=== PATIENT | male | born 1980 | race Caucasian/White ===

== ENCOUNTER 2020-03-21 14:13 | Emergency (ER) | payer BC ==
--- NOTE | 2020-03-21 15:34 | EDM.PDOC ---
ED HPI GENERAL MEDICAL PROBLEM - General Chief Complaint: Lower Extremity Injury/Pain Stated Complaint: L ANKLE PAIN Time Seen by Provider: 03/21/20 14:25 Source of Information: Reports: Patient, RN Notes Reviewed History Limitations: Reports: No Limitations - History of Present Illness INITIAL COMMENTS - FREE TEXT/NARRATIVE: Patient is a 39-year-old male who presents to the ED for the evaluation of his left ankle injury. Patient notes he was mowing his lawn today, when he stepped in a hole and ended up twisting his left ankle. He did take some ibuprofen at home, and was using some ice upon initial triage. He states this is helped quite a bit, he came to the ER due to the amount of swelling he noticed. He states he has previously rolled this ankle a few years back. He is not having any numbness or tingling distal to the injury, is not having any pain up into his knee or leg. He has not had any other sick-like symptoms, fever/chills, cough or shortness of breath, nausea/vomiting/diarrhea. Left Ankle Pain Score (Numeric/FACES): 2 - Related Data Allergies Allergy/AdvReac Type Severity Reaction Status Date / Time No Known Allergies Allergy Verified 03/21/20 14:26 Home Meds: Home Meds . [No Known Home Meds] 03/21/20 [History] Past Medical History - Past Health History Medical/Surgical History: Denies Medical/Surgical History - Infectious Disease History Infectious Disease History: Reports: None Social & Family History - Tobacco Use Smoking Status *Q: Never Smoker Second Hand Smoke Exposure: No - Caffeine Use Caffeine Use: Reports: Coffee - Recreational Drug Use Recreational Drug Use: No Review of Systems - Review of Systems Review Of Systems: Comprehensive ROS is negative, except as noted in HPI. ED EXAM, GENERAL - Physical Exam Exam: See Below Exam Limited By: No Limitations General Appearance: Alert, WD/WN, No Apparent Distress Respiratory/Chest: No Respiratory Distress, Lungs Clear, Normal Breath Sounds, No Accessory Muscle Use, Chest Non-Tender Cardiovascular: Normal Peripheral Pulses, Regular Rate, Rhythm, No Murmur Peripheral Pulses: 2+: Dorsalis Pedis (L), Dorsalis Pedis (R) Extremities: Normal Range of Motion, Normal Capillary Refill, Other (Swelling over the left lateral malleolus) Neurological: Alert, Oriented, Normal Cognition, No Motor/Sensory Deficits Psychiatric: Normal Affect, Normal Mood Skin Exam: Warm, Dry, Intact, Normal Color, No Rash Course - Vital Signs Last Recorded V/S: Last Vital Signs Temp 98 F 03/21/20 14:25 Pulse 70 03/21/20 14:25 Resp 16 03/21/20 14:25 BP 136/93 H 03/21/20 14:25 Pulse Ox 96 03/21/20 14:25 - Orders/Labs/Meds Orders: Active Orders 24 hr Category Date Time Status Ankle Min 3V Lt [CR] Stat Exams 03/21/20 14:37 Ordered DME for Discharge [COMM] Routine Oth 03/21/20 15:28 Ordered - Re-Assessments/Exams Free Text/Narrative Re-Assessment/Exam: 03/21/20 15:34 Patient presents to the ED for evaluation of his left ankle injury. X-rays were obtained at time of triage, and it does appear that he is probably just sprained his ankle, there is some small avulsion type fractures to the left lateral ankle noted by myself and Dr. Hill, these do appear somewhat old looking versus new acute avulsion. Nonetheless patient be placed in a pre-marium Aircast stirrup splint and given crutches for management. Departure - Departure Time of Disposition: 15:35 Disposition: Home, Self-Care 01 Condition: Good Clinical Impression: Left ankle sprain Qualifiers: Encounter type: initial encounter Involved ligament of ankle: unspecified ligament Qualified Code(s): S93.402A - Sprain of unspecified ligament of left ankle, initial encounter - Discharge Information *PRESCRIPTION DRUG MONITORING PROGRAM REVIEWED*: No *COPY OF PRESCRIPTION DRUG MONITORING REPORT IN PATIENT AMIRA: No Instructions: How to Use a Stirrup Ankle Brace, [id number] Referrals: PCP,None [Primary Care Provider] - Additional Instructions: You have been evaluated in the ED for your left ankle injury. Your x-ray demonstrated some areas that were questionable for small avulsion type injury or splinters off the bone. It is likely that you have just severely sprained your ankle. You were placed in a stirrup strap type brace and given crutches for management of this. Please use ice as tolerated to the affected area. Please try to elevate the affected area to relieve swelling. You may take Tylenol 500 mg or ibuprofen 600mg q6 hrs for pain relief. Please do so until you have a tolerable level of pain with activity. Do not exceed 4000mg Tylenol or 3200mg ibuprofen in a 24 hour time period. If your injury is not healing or getting better in roughly 7 to 10 days time, recommend you seek care for reevaluation. Please return to ED if your symptoms should change or worsen. Sepsis Event Note (ED) - Evaluation Sepsis Screening Result: No Definite Risk - Focused Exam Vital Signs: Vital Signs Temp Pulse Resp BP Pulse Ox 03/21/20 14:25 98 F 70 16 136/93 H 96 - My Orders Last 24 Hours: My Active Orders 03/21/20 14:37 Ankle Min 3V Lt [CR] Stat 03/21/20 15:28 DME for Discharge [COMM] Routine - Assessment/Plan Last 24 Hours: My Active Orders 03/21/20 14:37 Ankle Min 3V Lt [CR] Stat 03/21/20 15:28 DME for Discharge [COMM] Routine
--- NOTE | 2020-03-21 18:18 | CR ---
Left ankle: 4 views of the left ankle were obtained. Comparison: No previous ankle study. Small calcification is noted off the inferior fibula. No acute fracture, dislocation or other bony abnormality is seen. Soft tissue swelling is present. Impression: 1. Soft tissue swelling. 2. Small calcification which appears old is seen off the lateral ankle. 3. No acute fracture is seen. Diagnostic code #2 This report was dictated in MDT
== END 2020-03-21 15:45 | disposition home or self-care (01) ==
LOC: JD.ED 14:13
DX: S93.402A Sprain of unspecified ligament of left ankle, initial encounter (principal); X50.1XXA Overexertion from prolonged static or awkward postures, initial encounter
CPT/HCPCS: 73610-26-LT; 73610-LT; 99282; 99283